=== PATIENT | female | born 1965 | race Caucasian/White ===

== ENCOUNTER 2019-03-26 13:26 | Outpatient (CLI) | payer OTHER, SELFPAY ==
--- NOTE | ~2019-03-26 | MMUS_ITS ---
EXAMINATION: MM diagnostic mammo implant LT, US breast LT limited HISTORY: Possible lower inner quadrant left breast 6.4 x 11 mm mass reported on 03/08/2019 bilateral d igital screening mammogram TECHNIQUE: Additional 3-D tomosynthesis images of the left breast were performed . CAD analysis was s ubmitted and interpreted. High resolution lower outer quadrant left breast ultrasound was performed. COMPARISON: 03/08/2019 bilateral implant digital screening mammogram examination 02/19/2017 and 02/23/2018 bilateral implant digital screening mammogram examinations FINDINGS: MAMMOGRAPHIC FINDINGS: A 5 x 6 x 9 circumscribed opacity is suggested in the anterior aspect of the lower outer left breast, not evident on 02/23/2018; ultrasound correlation was performed. ULTRASOUND: At the area of mammographic abnormality is 5:00 2 cm from the nipple there is a cluster of cysts melissa uring 5.6 x 10.5 x 7.8 mm. There is through transmission and posterior enhancement. No suspicious int ernal vascularity or any abnormal shadowing is noted. IMPRESSION: 1. Probably benign cluster of cysts at 5:00 2 cm from nipple 2. Diagnostic left mammogram and targeted left breast ultrasound follow-up are recommended in 6 month s BI-RADS category 3, probably benign findings. Reviewed, dictated and finalized at location A. TOP OPERATOR IMPRESSION: 1. Probably benign cluster of cysts at 5:00 2 cm from nipple 2. Diagnostic left mammogram and targeted left breast ultrasound follow-up are recommended in 6 months BI-RADS category 3, probably benign findings.
== END 2019-03-26 13:27 | disposition home or self-care (01) ==
LOC: ANHIMG 13:28
PROVIDERS: PCP Family Medicine; Visit Provider Physician Assistant
DX: R92.8 Other abnormal and inconclusive findings on diagnostic imaging of breast (principal)
CPT/HCPCS: 76642; 77065

== ENCOUNTER 2019-11-02 12:31 | Outpatient (CLI) | payer BC, SELFPAY ==
--- NOTE | ~2019-11-02 | MMUS_ITS ---
EXAMINATION: MM diag dutch implant LT w panchito, US breast LT limited HISTORY: Probable benign cluster of cysts at 5:00 2 cm from nipple reported on 03/26/2019 left diagnos tic mammogram and limited left breast ultrasound TECHNIQUE: ML, MLO and craniocaudal 3-D tomosynthesis images of the left breast were performed and sy nthetic 2-D images were generated. CAD analysis was submitted and interpreted. High resolution lower outer quadrant left breast ultrasound was performed. COMPARISON: 03/26/2019 diagnostic left mammogram and limited left breast ultrasound FINDINGS: MAMMOGRAPHIC FINDINGS: A circumscribed 5 x 7.5 mm opacity is noted anteriorly in the lower outer quadrant of the left breast . ULTRASOUND: At 5:00 2 cm from the nipple there is a relatively stable cluster of cysts measuring approximately 7. 7 x 5.0 x 9.5 mm, with through transmission and posterior enhancement. No suspicious mass or shadowing is evident. IMPRESSION: 1. Benign cluster of cysts at 5:00 2 cm from nipple 2. Routine mammographic screening is recommended. BI-RADS Category 2: Benign finding(s). Reviewed, dictated and finalized at location A. IMPRESSION: 1. Benign cluster of cysts at 5:00 2 cm from nipple 2. Routine mammographic screening is recommended. BI-RADS Category 2: Benign finding(s).
== END 2019-11-02 12:32 | disposition home or self-care (01) ==
LOC: ANHIMG 12:32
PROVIDERS: PCP Family Medicine; Visit Provider Family Medicine
DX: R92.8 Other abnormal and inconclusive findings on diagnostic imaging of breast (principal)
CPT/HCPCS: 76642; 77061; 77065; G0279

== ENCOUNTER 2020-11-27 08:45 | Outpatient (CLI) | payer BC, OTHER, SELFPAY ==
--- NOTE | ~2020-11-27 | MM_ITS ---
EXAMINATION: MM scrn dutch implant BI w panchito HISTORY: Screening mammogram TECHNIQUE: Craniocaudal and mediolateral oblique 3-D tomosynthesis images with implant displacement a nd synthetic 2-D images were generated. Craniocaudal and mediolateral oblique views of the breasts wi thout implant displacement were obtained using full field digital mammography. CAD analysis was submi tted and interpreted. COMPARISON: 11/02/2019 and 03/26/2019 left diagnostic mammogram and limited left breast ultrasound 02/23/2018 bilateral implant digital screening mammogram 03/06/2017 complete right breast ultrasound 02/19/2017 bilateral digital screening mammogram BREAST PARENCHYMAL COMPOSITION: There are scattered areas of fibroglandular density. FINDINGS: Status post bilateral augmentation mammoplasty. 3.5 x 5 mm circumscribed opacity in the posterior outer mid right breast. The mammographic appearance is benign, probably an intramammary lymph node. Prominent right axillary lymph nodes are again noted, present on 02/19/2017 There is no evidence of suspicious mass, calcification, or architectural distortion to suggest malign asuncion in either breast. There has been no suspicious interval change. IMPRESSION: 1. No mammographic evidence of malignancy. 2. Recommend routine screening mammography in one year. BI-RADS Category 2: Benign finding(s). Reviewed, dictated and finalized at location A.
== END 2020-11-27 08:46 | disposition home or self-care (01) ==
LOC: ANHIMG 08:46
PROVIDERS: PCP Family Medicine; Visit Provider Physician Assistant
DX: Z12.31 Encounter for screening mammogram for malignant neoplasm of breast (principal)
CPT/HCPCS: 77063; 77067

== ENCOUNTER 2021-07-20 10:59 | Emergency (ER) | payer OTHER, SELFPAY ==
--- NOTE | ~2021-07-20 | XR_ITS ---
XR hip LT min 2V 07/20/2021 11:26 INDICATION: Left hip pain PROCEDURE: 2 view left hip COMPARISON: No prior studies for comparison. FINDINGS: Fracture, dislocation or subluxation is not identified. The soft tissues appear within norm al limits. No foreign bodies are identified. IMPRESSION: 1: NO ACUTE BONE OR JOINT ABNORMALITY IDENTIFIED. Reviewed, dictated and finalized at location B.
[2021-07-20 11:04] VITALS: BP 123/82; PULSE 77; RESP 16; TEMP 35.9; O2SAT 100
--- NOTE | 2021-07-20 11:08 | ED.EXTPRO ---
HPI - Extremity Problem General Chief complaint: Extremity Problem,Nontraumatic Stated complaint: L HIP PAIN Time Seen by Provider: 07/20/21 11:09 Source: patient, RN notes reviewed and old records reviewed Mode of arrival: ambulatory Limitations: no limitations History of Present Illness HPI Narrative: 55-year-old female presents to [facility] with complaints of left hip pain which began last night to the anterior aspect of her left hip which is aggravated by waling and going up or down steps. She states that she called her doctor and she wants her to have x-rays of her left hip and she also ordered her Prednisone which she has not yet started. patient reports that she has been doing this 30 day workout where you wlk for an interval then jog for an interval etc. She also reports that she did a 36 mile bile ride on her e-bike on Friday. Complaint: other (left anterior hip pain) Onset (ago): day(s) (1) Location: left and other (hip) Exacerbating factors: weight bearing, walking and other (going up and down stairs) Related Data Allergies Allergy/AdvReac Type Severity Reaction Status Date / Time No Known Allergies Allergy Verified 07/17/21 09:09 Review of Systems Review of Systems: CONSTITUTIONAL: Denies fever, chills, or sweats. EYES: Denies visual changes, redness, or discharge. ENT: Denies rhinorrhea, congestion, sore throat, or otalgia. CARDIOVASCULAR: Denies chest pain, palpitations, or edema. RESPIRATORY: Denies cough or dyspnea. GASTROINTESTINAL: Denies abdominal pain, nausea, vomiting, or diarrhea. GENITOURINARY: Denies dysuria or hematuria. SKIN: Denies rash or itching. MUSCULOSKELETAL: Denies back pain, joint pain, or myalgia, positive for left anterior hip pain NEUROLOGIC: Denies headache, numbness, or weakness. PSYCHIATRIC: Denies anxiety or depression. All systems reviewed & are unremarkable except as noted in HPI and below [facility] Past Medical History Medical History (Updated 07/20/21 @ 12:01 by Faviola Klein NP) Bronchitis Encounter for breast augmentation Hypothyroidism, unspecified Pure hypercholesterolemia, unspecified Surgical History Surgical History H/O breast augmentation Family History Family History Mother Family history of thyroid disease Hypertension Father Family history of elevated blood lipids Family history of cardiovascular disease Social History Social History Smoking status: Never smoker Smoking end date: 02/11/00 Alcohol intake: current Drinks per week: 5 Alcohol use details: wine Substance use: never Substance use type: does not use Gender identity (if verbalized by the patient): Female Comments At time of signature, agree with nursing past medical, surgical, social and family history. There is no relevant family history pertinent to the presenting complaint Exam Narrative: GENERAL: Well-appearing, well-nourished, and in no acute distress. HEAD: Normocephalic, atraumatic. EYES: PERRLA and EOMI. ENT: Nares clear, no rhinorrhea or epistaxis. Mucous membranes moist.TM's normal with good light reflex, throat pink with no lesions or exudates. NECK: Supple. no lymphadenopathy CHEST: Clear to auscultation. No respiratory distress. no cough or complaints of congestion SAO2 100% on room air HEART: Regular rate and rhythm. No murmur heard. Normal peripheral pulses. ABDOMEN: Soft, nontender, nondistended, normal active bowel sounds. EXTREMITIES: Normal range of motion. No edema.Limping gait to left leg, pain to anterior aspect of left hip noted especially with weight bearing and going up or down stairs. Patient has pain to anterior left hip area with flexion of left knee and and any attempt to pull it back to her chest. patient denies any tingling or numbness to her left leg or foot, pulses strong to lef
== END 2021-07-20 11:45 | disposition home or self-care (01) ==
PROVIDERS: Emergency Provider Registered Nurse; PCP Family Medicine
DX: M25.552 Pain in left hip (principal); E03.9 Hypothyroidism, unspecified; E78.00 Pure hypercholesterolemia, unspecified; Z87.891 Personal history of nicotine dependence
CPT/HCPCS: 73502; 99213; G0463

== ENCOUNTER 2022-02-01 10:25 | Outpatient (CLI) | payer OTHER, SELFPAY ==
--- NOTE | ~2022-02-01 | MM_ITS ---
EXAMINATION: MM scrn dutch implant BI w panchito HISTORY: Screening mammogram TECHNIQUE: Craniocaudal and mediolateral oblique 3-D tomosynthesis images with implant displacement a nd synthetic 2-D images were generated. Craniocaudal and mediolateral oblique views of the breasts wi thout implant displacement were obtained using full field digital mammography. CAD analysis was submi tted and interpreted. COMPARISON: Comparison to multiple prior studies sequentially, with oldest reviewed study dated . BREAST PARENCHYMAL COMPOSITION: There are scattered areas of fibroglandular density. FINDINGS: There are bilateral subpectoral silicone implants. There is no evidence of suspicious mass, calcification, or architectural distortion to suggest malignancy in either breast. There has been no suspicious interval change. IMPRESSION: 1. No mammographic evidence of malignancy. 2. Recommend routine screening mammography in one year. BI-RADS Category 1: Negative Reviewed, dictated and finalized at location A. L WORK DUCT INSTALLER
== END 2022-02-01 10:26 | disposition home or self-care (01) ==
LOC: ANHIMG 10:27
PROVIDERS: PCP Family Medicine; Visit Provider Family Medicine
DX: Z12.31 Encounter for screening mammogram for malignant neoplasm of breast (principal)
CPT/HCPCS: 77063; 77067

== ENCOUNTER 2022-03-25 00:31 | Day surgery (SDC) | payer OTHER, SELFPAY ==
[2022-03-11 14:59] VITALS: BMI 23.8
[2022-03-25 08:42] VITALS: BP 96/71; PULSE 79; RESP 20; TEMP 36.6; O2SAT 99; BMI 24.4
[2022-03-25] MEDS: LACTATED RINGERS 1,000 ML 150 ML IV CONT (08:51)
--- NOTE | 2022-03-25 08:54 | WPDANESEPPF ---
Anes - Initial Pre Proc Eval Procedure: Operation Date: 03/25/22 10:00 Proposed Procedures p Esophagogastroduodenoscopy - Miki Pittman MD Date/Time: 03/25/22 08:54 Surgeon: Miki Pittman MD Pre Op Diagnosis: unspecified foreign body in larynx causing injury Patient Data Age: 56 Gender: F Height: 1.68 m Weight: 68.6 kg Last Vital Signs Temp 97.9 F 03/25/22 08:42 Pulse 79 03/25/22 08:42 Resp 20 03/25/22 08:42 BP 96/71 L 03/25/22 08:42 Pulse Ox 99 03/25/22 08:42 O2 Del Method Room Air 03/25/22 08:42 Allergies Allergy/AdvReac Type Severity Reaction Status Date / Time No Known Allergies Allergy Verified 03/25/22 08:40 Home Medications Medication Instructions Recorded Confirmed Type rosuvastatin 5 mg tablet See Rx Instructions .Route 09/06/21 03/11/22 Rx .COMPLEX #90 tabs levothyroxine 75 mcg tablet See Rx Instructions .Route 11/30/21 03/11/22 Rx .COMPLEX #90 tabs cyclobenzaprine 10 mg tablet See Rx Instructions .Route 12/07/21 03/11/22 Rx .COMPLEX #60 tabs omeprazole 20 mg capsule,delayed 20 mg PO BID #180 caps 01/11/22 03/11/22 Rx release progesterone micronized 100 mg 100 mg PO DAILY 03/11/22 03/11/22 History capsule tirzepatide 15 mg/0.5 mL mg subcut 03/11/22 History subcutaneous pen injector (Sandeepunjosero) Patient hx anesthesia problems: none Family hx anesthesia problems: none Results Review: All pre-operative results and documents have been reviewed as part of the pre-operative evaluation. [facility] Past Medical History Medical History Bronchitis Encounter for breast augmentation Hypothyroidism, unspecified Pure hypercholesterolemia, unspecified Surgical History Surgical History H/O breast augmentation Family History Family History Mother Family history of thyroid disease Hypertension Father Family history of elevated blood lipids Family history of cardiovascular disease Social History Social History Smoking status: Never smoker Smoking end date: 02/11/00 Alcohol intake: current Drinks per week: 10 Alcohol use details: wine Substance use: never Substance use type: does not use Lack of Transportation: No Lack of Food: Never True Current Housing: I Have Housing Concerned About Future Housing: No Difficulty Paying Gas/Electric Bills: No Difficulty Paying for Meds: No Currently Unemployed: No Education: Trade/Vocational Certificate Difficulty w/ Childcare or Family Care: No Living arrangements: with family Gender identity (if verbalized by the patient): Female Spiritual care concerns: No Anes - Eval Final PreProcedure Day of Procedure 03/25/22 08:54 Patient weight: normal Heart: regular rate and rhythm Lungs: clear to auscultation Airway: Mallampati scale class II Neurological: alert and oriented Last oral intake: >/= 8 hours ASA classification: II Emergent: no Anesthetic plan: proceed Anesthesia type and monitoring: general GIVS and standard monitoring Results Review: All pre-operative results and documents have been reviewed as part of the pre-operative evaluation. Informed Consent: The patient's anesthetic plan and its attendant risks and benefits were discussed with the patient/family/POA. Questions were solicited and answers provided to the satisfaction of the patient/family/POA.
--- NOTE | 2022-03-25 09:12 | PM.HPGS ---
History of Present Illness History of Present Illness Consent: Risks, benefits, and alternatives have been discussed and questions answered. Patient agrees to proceed with procedure. Chief complaint: dysphagia Narrative: Leslie Inman is a 56 year old female Presents for EGD. For the last 1 year patient notes that more solid food such as chicken will catch in the mid substernal portion of the chest. Patient has history of heartburn. In January was placed on omeprazole 20mg p.o. daily and has had no additional heartburn subsequently. Patient denies any weight loss or bleeding. Family history is noncontributory. In EGD is requested because of dysphagia. Review of Systems Review of Systems: Review of systems noncontributory. [facility] Past Medical History Medical History Bronchitis Encounter for breast augmentation Hypothyroidism, unspecified Pure hypercholesterolemia, unspecified Surgical History Surgical History H/O breast augmentation Family History Family History Mother Family history of thyroid disease Hypertension Father Family history of elevated blood lipids Family history of cardiovascular disease Social History Social History Smoking status: Never smoker Smoking end date: 02/11/00 Alcohol intake: current Drinks per week: 10 Alcohol use details: wine Substance use: never Substance use type: does not use Lack of Transportation: No Lack of Food: Never True Current Housing: I Have Housing Concerned About Future Housing: No Difficulty Paying Gas/Electric Bills: No Difficulty Paying for Meds: No Currently Unemployed: No Education: Trade/Vocational Certificate Difficulty w/ Childcare or Family Care: No Living arrangements: with family Gender identity (if verbalized by the patient): Female Spiritual care concerns: No Meds Home Medications and Allergies Home Medications Medication Instructions Recorded Confirmed Type rosuvastatin 5 mg tablet See Rx Instructions .Route 09/06/21 03/11/22 Rx .COMPLEX #90 tabs levothyroxine 75 mcg tablet See Rx Instructions .Route 11/30/21 03/11/22 Rx .COMPLEX #90 tabs cyclobenzaprine 10 mg tablet See Rx Instructions .Route 12/07/21 03/11/22 Rx .COMPLEX #60 tabs omeprazole 20 mg capsule,delayed 20 mg PO BID #180 caps 01/11/22 03/11/22 Rx release progesterone micronized 100 mg 100 mg PO DAILY 03/11/22 03/11/22 History capsule tirzepatide 15 mg/0.5 mL mg subcut 03/11/22 History subcutaneous pen injector (Pete) Allergies Allergy/AdvReac Type Severity Reaction Status Date / Time No Known Allergies Allergy Verified 03/25/22 08:40 Vital Signs Vital Signs - 24 hr 03/25/22 08:42 Temperature 97.9 F Pulse Rate 79 Respiratory Rate 20 Blood Pressure 96/71 L Pulse Oximetry 99 Oxygen Delivery Room Air Exam Narrative: Physical exam reveals patient to be alert. Vital signs stable. HEENT exam is unremarkable. Patient is anicteric. Lungs are clear to auscultation and percussion. Heart is without murmur or extra sounds. Abdomen bowel sounds are present soft nontender with no organomegaly. Assessment and Plan Assessment and plan (1) Dysphagia: Code(s): R13.10 - Dysphagia, unspecified Status: Acute Assessment and Plan: patient complains of difficulty swallowing. Larger pieces of food such as chicken or meat will catch in the mid substernal portion the chest. Patient has had mild heartburn controlled with omeprazole for the last 1-2 months. Plan for EGD to assess dysphagia more thoroughly possible dilatation of the esophagus if necessary. Further recommendations will be given after endoscopy.
[2022-03-25 09:52] VITALS: BP 146/84; PULSE 81; RESP 19; TEMP 36.6; O2SAT 100
[2022-03-25 10:02] VITALS: BP 146/84; PULSE 83; RESP 16; TEMP 36.6; O2SAT 100
[2022-03-25 10:12] VITALS: BP 121/80; PULSE 71; RESP 16; TEMP 36.6; O2SAT 100
== END 2022-03-25 10:15 | disposition home or self-care (01) ==
PROVIDERS: PCP Family Medicine; Visit Provider Internal Medicine Gastroenterology
PROC: 0DJ08ZZ Inspection of Upper Intestinal Tract, Via Natural or Artificial Opening Endoscopic (ICD-10-PCS; CPT 43235; principal; 2022-03-25 10:00)
DX: R13.10 Dysphagia, unspecified (principal); K31.84 Gastroparesis; E03.9 Hypothyroidism, unspecified; E78.00 Pure hypercholesterolemia, unspecified
CPT/HCPCS: 43450; 43235; J2704; J7120

== ENCOUNTER 2023-02-04 10:30 | Outpatient (CLI) | payer OTHER, SELFPAY ==
--- NOTE | ~2023-02-04 | MM_ITS ---
EXAMINATION: MM scrn dutch implant BI w panchito HISTORY: Screening mammogram TECHNIQUE: Craniocaudal and mediolateral oblique 3-D tomosynthesis images with implant displacement a nd synthetic 2-D images were generated. Craniocaudal and mediolateral oblique views of the breasts wi thout implant displacement were obtained using full field digital mammography. CAD analysis was submi tted and interpreted. COMPARISON: 02/01/2022, 11/27/2020 bilateral implant screening mammogram examinations BREAST PARENCHYMAL COMPOSITION: The breasts are heterogeneously dense, which may obscure small masses . FINDINGS: Status post bilateral augmentation mammoplasty. There is no evidence of suspicious mass, ca lcification, or architectural distortion to suggest malignancy in either breast. There has been no francisco spicious interval change. IMPRESSION: 1. No mammographic evidence of malignancy. 2. Recommend routine screening mammography in one year. BI-RADS Category 1: Negative Reviewed, dictated and finalized at location A. CAULKER
== END 2023-02-04 10:31 | disposition home or self-care (01) ==
PROVIDERS: PCP Family Medicine; Visit Provider Obstetrics & Gynecology
DX: Z12.31 Encounter for screening mammogram for malignant neoplasm of breast (principal)
CPT/HCPCS: 77063; 77067

== ENCOUNTER → 2023-09-08 13:11 | Outpatient (REF) | payer OTHER, SELFPAY | LOC: ANHLAB 13:11 | PROVIDERS: PCP Family Medicine; Visit Provider Plastic Surgery | DX: D36.11 Benign neoplasm of peripheral nerves and autonomic nervous system of face, head, and neck (principal) | CPT/HCPCS: 88305 ==

== ENCOUNTER 2024-02-09 07:07 | Outpatient (CLI) | payer OTHER, SELFPAY ==
--- NOTE | ~2024-02-09 | DEXA_ITS ---
Bone Density Report Name: JOAN LOWERY Age: 58 Sex: Female Ethnicity: White Date of : 1965 Indication: postmenopausal; screening for osteoporosis; Referring Provider: BHARAT CAMPBELL Study: Bone densitometry was performed. Exam Date: February 09, 2024 Accession number: [id number] Bone Density: Region BMD T-score Z-score Classification AP Spine(L1-L4) 1.078 0.3 1.5 Normal Femoral Neck (Left) 0.833 -0.1 1.0 Normal Total Hip (Left) 1.032 0.7 1.5 Normal Femoral Neck (Right) 0.781 -0.6 0.5 Normal Total Hip (Right) 1.038 0.8 1.6 Normal Total Hip Mean 1.035 0.8 1.6 Normal World Health Organization criteria for BMD impression classify patients as: Normal (T-score at or above -1.0), Osteopenia (T-score between -1.0 and -2.5), or Osteoporosis (T-score at or below -2.5). 10-year Fracture Risk: FRAX not reported because: All T-scores for Spine Total, Hip Total, Femoral Neck at or above -1.0 Clinical Information Provided by Patient: Has used the following medications: Vitamin D, Calcium Patient maximum height was 66 Menopause Age: 47 Drinks caffeinated beverages Onset of menses at age 16 Number of children 2 Impression: The patient has normal bone mass. Discussion: BONE DENSITY IS ABOVE THE MINIMUM DESIRABLE LEVEL AT ALL SKELETAL SITES TESTED. This patient?s bone mineral density is above the minimum desirable level (T-score -1.0 or better) at all sites measured. The patient should follow a healthful lifestyle (good nutrition with adequate calcium and vitamin D, and appropriate weight-bearing exercise). Follow-Up: Consider repeating this study in 5 years or sooner if there is some new clinical indication. Reported by: AIDAN on 02/09/2024 7:49:00 AM. Reviewed, dictated and finalized at location ARichi LANDAVERDE
--- NOTE | ~2024-02-09 | MM_ITS ---
EXAMINATION: MM scrn dutch implant BI w panchito HISTORY: Screening TECHNIQUE: Craniocaudal and mediolateral oblique 3-D tomosynthesis images were obtained and synthetic 2-D images were generated. CAD analysis was submitted and interpreted. Implant displaced views were also performed. COMPARISON: 02/04/2023 - 02/23/2018 BREAST PARENCHYMAL COMPOSITION: The breasts are heterogeneously dense, which may obscure small masses . FINDINGS: Asymmetry in the lower right breast seen only on MLO view for which spot compression follow ed by a possible US is recommended. Otherwise stable parenchymal pattern without suspicious microcalcifications or architectural distorti on. IMPRESSION: Asymmetry in the lower right breast seen only on MLO view for which spot compression followed by a po ssible US is recommended. BI-RADS Category 0: Incomplete: Needs additional imaging evaluation. Reviewed, dictated and finalized at location A. RVISOR ADULT EDUCATION IMPRESSION: Asymmetry in the lower right breast seen only on MLO view for which spot compre ssion followed by a possible US is recommended. BI-RADS Category 0: Incomplete: Needs additional imaging evaluation.
== END 2024-02-09 07:08 | disposition home or self-care (01) ==
LOC: ANHIMG 07:11
PROVIDERS: PCP Family Medicine; Visit Provider Family Medicine
DX: Z12.31 Encounter for screening mammogram for malignant neoplasm of breast (principal); M85.88 Other specified disorders of bone density and structure, other site; N64.89 Other specified disorders of breast; Z13.820 Encounter for screening for osteoporosis
CPT/HCPCS: 77063; 77067; 77080

== ENCOUNTER 2024-03-02 11:29 | Outpatient (CLI) | payer OTHER, SELFPAY ==
--- NOTE | ~2024-03-02 | MMUS_ITS ---
EXAMINATION: US breast RT complete, MM diag dutch implant RT w panchito HISTORY: Follow-up right breast asymmetry TECHNIQUE: Additional 3-D tomosynthesis images of the right breast were performed and synthetic 2-D i mages were generated. CAD analysis was submitted and interpreted. High resolution complete right amarjit st ultrasound was performed. COMPARISON: Comparison to multiple prior studies sequentially, with oldest reviewed study dated 02/23. BREAST PARENCHYMAL COMPOSITION: Dense: The breasts are heterogeneously dense, which may obscure small masses FINDINGS: MAMMOGRAPHIC FINDINGS: Asymmetries in the lower aspect of the right breast are less apparent with spot compression and medio lateral views. ULTRASOUND: Complete US of all 4 quadrants of the right breast/s and retroareolar region was reviewed. At 3:00, 1 cm from the nipple there is a small cluster of cysts measuring 5 mm in aggregate, likely a cluster o f microcysts. At 5:00, 2 cm from the nipple there are 2 cysts largest measuring 4 mm. There are echog enic areas of the right axilla with the 30 shadowing, possibly representing areas of silicone from im plant rupture. IMPRESSION: 1. Probable benign findings of the right breast. 2. Recommend 6 month follow-up diagnostic right mammogram and Limited right breast ultrasound BI-RADS category 3, probably benign findings. Reviewed, dictated and finalized at location A. RVISOR COMPRESSED YEAST IMPRESSION: 1. Probable benign findings of the right breast. 2. Recommend 6 month follow-up diagnostic right mammogram and Limited right ben ast ultrasound BI-RADS category 3, probably benign findings.
== END 2024-03-02 11:30 | disposition home or self-care (01) ==
PROVIDERS: PCP Family Medicine; Visit Provider Obstetrics & Gynecology
DX: N64.89 Other specified disorders of breast (principal)
CPT/HCPCS: 76641; 77061; 77065; G0279